=== PATIENT | female | born 1940 | race Caucasian/White ===

== ENCOUNTER → 2019-04-03 08:44 | Outpatient (CLI) | payer MEDICARE, BC | END | disposition home or self-care (01) | LOC: D.US 08:44 | PROVIDERS: ATTEND Nurse Practitioner Family | DX: N18.3 Chronic kidney disease, stage 3 (moderate) (principal); I10 Essential (primary) hypertension ==

== ENCOUNTER → 2019-06-11 14:43 | Outpatient (CLI) | payer MEDICARE, BC ==
[~2019-06-11 14:43] MED LIST: ALDACTONE25 MG PO; BYSTOLIC5 MG PO; CALCIUM 250+D T1 TAB PO; CARDURA1 MG PO; CELEBREX200 MG PO; CO Q-10400 MG PO; COZAAR50 MG PO; DIFLUCAN150 MG PO; FEXOFENADINE H180 MG PO; FUROSEMIDE20 MG PO; GORDON'S VITE480 G1 TP; HYDROCODON-ACE1 EA10 PO; IPRATROPIUM BRO30 M1 NASAL; METROGEL 0.75 %45 GM TOPICAL; NEXIUM40 MG PO; PREDNISONE2.5 MG PO; PREMARIN0.3 MG PO; PROBIOTIC1 EAC1 PO; RANITIDINE HCL150 M1 PO; RENA-VITE TABL0.8 MG PO; ROBAXIN500 MG PO; SYNTHROID50 MCG PO; ULTRAM50 MG PO; XALATAN 0.0052.5 ML EACH EYE; ZOCOR20 MG PO
[2019-07-13 07:44] VITALS: BMI 30.3
== END | disposition home or self-care (01) ==
LOC: D.MRI 14:43
PROVIDERS: ATTEND Clinical Nurse Specialist Family Health
DX: M25.511 Pain in right shoulder (principal)

== ENCOUNTER 2019-06-13 14:40 | Emergency (ER) | payer MEDICARE, BC ==
[2019-06-13 14:49] VITALS: Wt 70.5 kg
[2019-06-13 16:13] VITALS: BP 139/61
[2019-07-10] MEDS ORDERED: BYSTOLIC5 MG PO (11:01)
[2019-07-10] MEDS ORDERED: CALCIUM 250+D T1 TAB PO (11:02)
[2019-07-10] MEDS ORDERED: CO Q-10400 MG PO (11:02)
[2019-07-10] MEDS ORDERED: CELEBREX200 MG PO (11:02)
[2019-07-10] MEDS ORDERED: RENA-VITE TABL0.8 MG PO (11:03)
[2019-07-10] MEDS ORDERED: FEXOFENADINE H180 MG PO (11:03)
[2019-07-10] MEDS ORDERED: XALATAN 0.0052.5 ML EACH EYE (11:04)
[2019-07-10] MEDS ORDERED: FUROSEMIDE20 MG PO (11:05)
[2019-07-10] MEDS ORDERED: SYNTHROID50 MCG PO (11:06)
[2019-07-10] MEDS ORDERED: COZAAR50 MG PO (11:06)
[2019-07-10] MEDS ORDERED: ROBAXIN500 MG PO (11:07)
[2019-07-10] MEDS ORDERED: ULTRAM50 MG PO (11:08)
[2019-07-10] MEDS ORDERED: METROGEL 0.75 %45 GM TOPICAL (11:09)
[2019-07-10] MEDS ORDERED: NEXIUM40 MG PO (11:09)
[2019-07-10] MEDS ORDERED: PREDNISONE2.5 MG PO (11:10)
[2019-07-10] MEDS ORDERED: PREMARIN0.3 MG PO (11:10)
[2019-07-10] MEDS ORDERED: PROBIOTIC1 EAC1 PO (11:11)
[2019-07-10] MEDS ORDERED: RANITIDINE HCL150 M1 PO (11:11)
[2019-07-10] MEDS ORDERED: ZOCOR20 MG PO (11:12)
[2019-07-10] MEDS ORDERED: GORDON'S VITE480 G1 TP (11:13)
[2019-07-10] MEDS ORDERED: IPRATROPIUM BRO30 M1 NASAL (11:14)
[2019-07-10] MEDS ORDERED: CARDURA1 MG PO (11:14)
[2019-07-10] MEDS ORDERED: DIFLUCAN150 MG PO (11:15)
== END 2019-06-13 16:13 | disposition home or self-care (01) ==
LOC: D.ER 14:40
DX: S40.021A Contusion of right upper arm, initial encounter (principal); W19.XXXA Unspecified fall, initial encounter

== ENCOUNTER 2019-07-13 06:35 | Day surgery (SDC) | payer MEDICARE, BC ==
[2019-07-10 10:38] LABS: BASOPHILS 0.2 % (0-2); EOSINOPHILS 0.9 % (0-7); HEMATOCRIT 40.5 % (36.0-48.0); HEMOGLOBIN 12.6 g/dL (12-16); IMMATURE GRANULOCYTES 0.6 % (0-5); LYMPHOCYTES 26.3 % (15-50); MCH 32.2 pg (26.0-34.0); MCHC 31.1 g/dL (31.0-37.0); MCV 103.6 fL (80.0-100.0); MEAN PLATELET VOLUME 9.6 fL (7.4-10.4); MONOCYTES 8.3 % (2-11); NEUTROPHILS 63.7 % (40-80); PLATELET COUNT 242 10x3/uL (130-400); RBC 3.91 10x6/uL (4.00-5.40); RDW 13.4 % (11.5-14.5); WBC 8.7 10x3/uL (4.8-10.8)
[2019-07-10 10:52] LABS: ANION GAP 8.1 mmol/L (8-16); CALCIUM 8.9 mg/dL (8.5-10.1); CARBON DIOXIDE 29.8 mmol/L (21.0-32.0); CREATININE - SERUM 1.2 mg/dL (0.6-1.3); POTASSIUM - SERUM 3.9 mmol/L (3.5-5.1)
[~2019-07-13] VITALS: Ht 152.4 cm; Wt 70.3 kg
[~2019-07-13 06:35] MED LIST changes: -ALDACTONE25 MG PO; -HYDROCODON-ACE1 EA10 PO
[2019-07-13] MEDS ORDERED: ALDACTONE25 MG PO (07:31)
[2019-07-13 07:44] VITALS: BP 150/76; Ht 152.4 cm; Wt 70.3 kg
[2019-07-13] MEDS ORDERED: HYDROCODON-ACE1 EA10 PO (09:49)
--- NOTE | 2019-07-13 10:37 | NUR ---
1028 FAMILY AT SIDE.
--- NOTE | 2019-07-28 15:11 | OP ---
PATIENT NAME: ARTURO PADRON MEDICAL RECORD: [id number] :38 LOCATION:[facility] ADMISSION DATE: SURGEON: MIESHA MILLIGAN, CHRISSY CROCKER DATE OF OPERATION: 07/13/2019 PREOPERATIVE DIAGNOSES: Rotator cuff tear of the left shoulder with impingement and acromioclavicular arthritis. POSTOPERATIVE DIAGNOSES: Rotator cuff tear of the left shoulder with impingement and acromioclavicular arthritis plus biceps tendinitis. PROCEDURES: Left shoulder arthroscopy, left shoulder arthroscopic rotator cuff repair, left shoulder biceps tenotomy, left shoulder distal clavicle excision done through separate incision -- 1 cm left shoulder arthroscopic subacromial decompression. SURGEON: Chrissy Whiteside MD ANESTHESIA: General. INTRAOPERATIVE COMPLICATIONS: None. SUMMARY OF PATHOLOGIC FINDINGS: Consistent with the preoperative diagnosis, the patient did have a rotator cuff tear and impingement along with acromioclavicular arthritis. The patient had substantial biceps tendinitis, which resulted in a biceps tenotomy along with the other for procedures as mentioned above. OPERATIVE SUMMARY IN DETAIL: After obtaining the appropriate preoperative orthopedic surgery consent as well as anesthetic consultation, evaluation and clearance, the patient was brought to the operating room and placed on the operating table in supine position. After adequate general laryngeal mask airway sedation was administered, the patient was placed in a right lateral decubitus position. All pressure points were well padded to include down leg peroneal pad as well as axillary roll. The patient was held firmly to the operating table using the vacuum pack suction system. Left upper extremity was held and prepped and draped in routine sterile fashion. The arm was held in the Arthrex traction boom at 30 degrees of forward flexion, 30 degrees of abduction with 10 pounds of traction laterally. Arthroscopy was established in the glenohumeral joint from the posterior portal. Anterior portal was established in the anterior safe interval. Diagnostic arthroscopy did reveal the patient to have a full thickness rotator cuff tear as well as severe biceps tendinitis. At this point, surface tissue ablation system was utilized to completely release the biceps tendon from the bicipital labral junction. Sensory lateral portal was created to debride the undersurface of the rotator cuff of all nonviable rotator cuff appearing tissue and decorticate the greater tuberosity at the cartilage bone junction. Attention was then turned to the subacromial space. While in the subacromial space, [place] tissue ablation system was utilized to denude the undersurface of the acromion of all soft tissue elements. A 5-0 barrel bur was used for acromioplasty at the level of acromioclavicular joint. Arthroscopy portals were switched and under direct arthroscopic visualization to an anterior portal, distal clavicle excision was done for 1 cm. Lastly, attention was turned to the rotator cuff from the nonacromial side of the rotator cuff. All nonviable-appearing rotator cuff tissue was taken down with a 5.0 resector as was the subacromial bursa. Mattress #2 FiberTape was placed and OPERATIVE REPORT [id number] ARTURO PADRON then anchored laterally in the greater tuberosity with a 5.5 SwiveLock from Arthrex to complete the rotator cuff repair. Having completed this, arthroscopy portals were closed in routine interrupted fashion using 4-0 Prolene. Sterile dressings were applied. The patient was awakened, taken to recovery room in stable condition. All final needle and sponge counts were correct. TRANSINT:[id number] Voice Confirmation ID: [id number] DOCUMENT ID: [id number] CHRISSY WHITESIDE MD at 1511 CC: [id number] DICTATION DATE: 07/28/19 0804 KINESEOLOGIST: 07/28/19 1015 [facility] 07/13/19 [facility] [address] [place] [address]
== END 2019-07-13 12:30 | disposition home or self-care (01) ==
LOC: D.OPS 06:35 → D.PAN 07:30 → D.OPS 07:30
PROVIDERS: Anesthesiology; ATTEND Orthopaedic Surgery
DX: M75.42 Impingement syndrome of left shoulder (principal); M75.102 Unspecified rotator cuff tear or rupture of left shoulder, not specified as traumatic

== ENCOUNTER → 2019-07-27 09:26 | Outpatient (CLI) | payer MEDICARE, BC ==
[2019-07-13 07:44] VITALS: BMI 30.3
[~2019-07-27 09:26] MED LIST changes: +ALDACTONE25 MG PO; +HYDROCODON-ACE1 EA10 PO
== END | disposition home or self-care (01) ==
LOC: D.MRI 09:26
PROVIDERS: ATTEND Clinical Nurse Specialist Family Health
DX: M25.511 Pain in right shoulder (principal)

== ENCOUNTER 2021-01-09 11:23 | Day surgery (SDC) | payer MEDICARE, BC ==
[~2021-01-09] VITALS: Ht 152.4 cm; Wt 73.6 kg
[~2021-01-09 11:23] MED LIST changes: +BENICAR20 MG PO; +CRANBERRY TAB PO; +CYMBALTA60 MG PO; +DOXYCYCLINE HY100 M2 PO; +FOLIC ACID0.8 MG PO; +HYTRIN1 MG PO; +K-TAB10 MEQ PO; +ULTRACET TABLE1 EAC1 PO; +VALTREX500 MG PO; +VITAMIN D325 MC1 PO
[2021-01-09 12:03] LABS: BASOPHILS 0.3 % (0-2); EOSINOPHILS 0.9 % (0-7); HEMATOCRIT 38.7 % (36.0-48.0); HEMOGLOBIN 12.4 g/dL (12-16); IMMATURE GRANULOCYTES 0.8 % (0-5); LYMPHOCYTE ABS# 2.31 10x3/uL (1.18-3.74); LYMPHOCYTES 26.7 % (15-50); MCH 31.6 pg (26.0-34.0); MCV 98.7 fL (80.0-100.0); MEAN PLATELET VOLUME 10.4 fL (7.4-10.4); MONOCYTES 8.2 % (2-11); NEUTROPHIL ABS# 5.44 10x3/uL (1.56-6.13); NEUTROPHILS 63.1 % (40-80); PLATELET COUNT 297 10x3/uL (130-400); RBC 3.92 10x6/uL (4.00-5.40); WBC 8.6 10x3/uL (4.8-10.8)
[2021-01-09 12:10] LABS: ANION GAP 10.1 mmol/L (8-16); CALCIUM 9.3 mg/dL (8.5-10.1); CARBON DIOXIDE 30.3 mmol/L (21.0-32.0); CREATININE - SERUM 1.5 mg/dL (0.6-1.3); POTASSIUM - SERUM 4.4 mmol/L (3.5-5.1)
[2021-01-09 13:50] VITALS: BP 135/60; BMI 31.9
--- NOTE | 2021-01-09 17:20 | NUR ---
DISCHARGE INSTRUCTIONS REVIEWED WITH PT, ORIGINAL RX FOR TRAMADOL, COLACE AND VALIUM, ALONG WITH COPY OF DC INSTRUCTIONS PROVIDED TO PT. SHE VOICED UNDERSTANDING OF ALL.
--- NOTE | 2021-01-09 19:00 | NUR ---
BLADDER SCAN PERFORMED. 227 ML SHOWN ON BLADDER SCAN
--- NOTE | 2021-01-09 20:05 | NUR ---
BLADDER SCAN PERFORMED FOR SECOND TIME. BLADDER SCAN SHOWS APPROX 300 ML IN BLADDER. PATIENT HAS LITTLE TO NO URGE TO URINATE. HAS ATTEMPTED MULTIPLE TIMES WITH NO SUCCESS
--- NOTE | 2021-01-09 20:48 | NUR ---
PATIENT TRANSFERRED BY WHEELCHAIR TO 220, PATIENT AWAKE, ALERT, DENIES COMPLAINTS, PATIENT IS PLEASANT AND COOPERATIVE WITH PLAN. PATIENT CONTINUES TO RECEIVE IV FLUIDS AND DRINK LIQUIDS, LITTLE TO NO URGE TO URINATE
[2021-01-10 03:23] VITALS: BP 135/60; Ht 152.4 cm; Wt 73.6 kg
[2021-01-10 04:00] VITALS: BP 144/65
[2021-01-10 08:17] VITALS: BP 151/72
--- NOTE | 2021-01-10 10:03 | NUR ---
MOSES REMOVED, TIP INTACT, 500mL CLEAR URINE, PT TOLERATED WELL
[2021-01-10] MEDS ORDERED: TRAMADOL HCL E100 M1 PO (10:13)
[2021-01-10] MEDS ORDERED: COLACE100 MG PO (10:14)
[2021-01-10] MEDS ORDERED: VALIUM5 MG PO (10:15)
[2021-01-10] MEDS ORDERED: FLOMAX0.4 MG PO (10:28)
[2021-01-10 12:48] VITALS: BP 141/66
--- NOTE | 2021-01-10 13:09 | NUR ---
PT STILL TRYING TO URINATE, PT STATES SHE TAKES 40MG OF LASIX DAILY AT HOME AND HAS NOT RECEIVED ANY OF HER HOME MEDS IN TWO DAYS, PT REQUESTS A DOSE OF LASIX TO HELP HER URINATE
--- NOTE | 2021-01-10 13:59 | NUR ---
MO CONTACTED, DISCUSSED PT REQUEST FOR LASIX, ORDERS RECIEVED FOR LASIX AND FLOMAX ONE TIME DOSE AND FOR PT TO BE BLADDER SCANNED
--- NOTE | 2021-01-10 15:23 | NUR ---
BLADDER SCAN 203mL
--- NOTE | 2021-01-10 15:53 | NUR ---
DISCHARGE INSTRUCTIONS REVIEWED AND SIGNED WITH PT, NO IV, STAT LOCK REMOVED FROM RIGHT LEG, PT IN STABLE CONDITION, PT TAKEN DOWN TO FRONT DOOR VIA WHEELCHAIR BY HOSPITAL STAFF, NO SIGNS OF DISTRESS
--- NOTE | 2021-01-10 16:55 | HP ---
PATIENT: ARTURO PADRON MEDICAL RECORD: [id number] ACCOUNT: [id number] LOCATION:D.MS [id number] : 38 ADMISSION DATE: 01/09/21 PCP: JT HAYWARD MD HISTORY AND PHYSICAL EXAMINATION HISTORY OF PRESENT ILLNESS: She is here for a procedure for prolapse and hemorrhoids as well as excision of an anal skin tag. She has numerous allergies. We discussed the pathophysiology of hemorrhoids as well as how they can be fixed. She has elected for procedure for prolapse and hemorrhoids with excision of an anal skin tag. She has a combination of internal and external hemorrhoidal symptoms, which are intractable. She sometimes has to reduce a prolapsed hemorrhoid. HOME MEDICINES: Reviewed. PAST MEDICAL AND SURGICAL HISTORY: Numerous orthopedic problems. Gastroesophageal reflux, arthritis, hypercholesterolemia, hypertension, shoulder pain, thyroid problems, urinary tract infections. FAMILY HISTORY: Mother had a stroke and arthritis. Father had Parkinson's disease and hypertension. PHYSICAL EXAMINATION: GENERAL: The patient does not appear acutely ill. She does not appear chronically ill. The entire physical examination was performed in the presence of a female nurse. EARS: External ears appeared normal. EYES: Extraocular movements are intact. NECK: Trachea is midline. CHEST: No intercostal retractions. PULMONARY: Nonlabored. No stridor. ANAL: Anal skin tag and large external hemorrhoids. IMPRESSION: Intractably symptomatic hemorrhoidal problems with an anal skin tag. PLAN: Procedure for prolapse and hemorrhoids as well as excision of an anal skin tag. TRANSINT:[id number] Voice Confirmation ID: [id number] DOCUMENT ID: [id number] SHREE NEVES MD at 1655 CC: MATIAS ARANDA APRN and JT HAYWARD [id number] DICTATION DATE: 01/09/21 1430 PHP DEVELOPER: 01/09/21 1632 [facility] [address] [place] [address]
[2021-01-10 17:22] VITALS: BP 148/74
--- NOTE | 2021-01-11 10:33 | OP ---
PATIENT NAME: ARTURO PADRON MEDICAL RECORD: [id number] :38 LOCATION:D.OPS ADMISSION DATE: SURGEON: MIKEY NEVES MD DATE OF OPERATION: 01/09/2021 PREOPERATIVE DIAGNOSES: 1. Intractably symptomatic hemorrhoids. 2. Internal hemorrhoidal bleeding. 3. Anal prolapse with a single third-degree hemorrhoidal prolapse. 4. Symptomatic skin tag. 5. Intractably symptomatic external hemorrhoids. POSTOPERATIVE DIAGNOSES: 1. Intractably symptomatic hemorrhoids. 2. Internal hemorrhoidal bleeding. 3. Anal prolapse with a single third-degree hemorrhoidal prolapse. 4. Symptomatic skin tag. 5. Intractably symptomatic external hemorrhoids. PROCEDURE: Procedure for prolapse and hemorrhoids also excision of anal skin tag. SURGEON: Mikey Neves MD ACCOUNT DEVELOPMENT REPRESENTATIVE: None. BLOOD LOSS: Minimal. ANESTHESIA: General. COMPLICATIONS: None. The risks, possible complications, and alternatives of the procedure were explained to the patient. She elects to proceed. We discussed the pathophysiology of hemorrhoids as well as how they can be repaired. The discussion specifically included, but was not limited to, bleeding requiring emergency reoperation, infection, recurrent hemorrhoidal symptoms, anal stenosis, and fecal incontinence. OPERATIVE COURSE: The patient was conveyed to the operating room electively on 01/09/2021. General anesthesia was induced by the anesthesia staff. The patient was placed in the lithotomy position. The anus and perineum were sterilely prepped and draped. A U-shaped anal retractors were placed within the anus. I noted no evidence of anal fissure. No evidence of an anal fistula. I examined the posterior wall of the vagina and noted no injury and specifically no rectovaginal fistula. The PPH dilator retractor was placed and the retractor was sewn to the surrounding anoderm with 2-0 silks. A mucosal pursestring suture of 2-0 Prolene was applied 1 cm cephalad to the clear retractor. The PPH stapling device was inserted with the anvil cephalad to the pursestring suture, which was then tightened and tied. The stapling device was engaged. It was held in place for 3 minutes and then fired. It was then removed. There was entire donut of rectal and internal hemorrhoidal tissue within the stapling device. Bleeding along the mucosal anastomotic staple line was controlled with [id number] OPERATIVE REPORT [id number] ARTURO PADRON 3-0 Vicryl. Gelfoam was placed within the anus and lower rectum. I then grasped the skin tag which was located at 11 o'clock and excised with electrocautery. Bleeding was controlled with electrocautery. A combination of Marcaine and a steroid preparation were used to infiltrate the perianal tissues. A topical anesthetic cream was applied to the external hemorrhoids. The patient was then extubated and conveyed to post-anesthesia care unit where she was in stable condition. She will be discharged home on Valium as well as an analgesic and a stool softener. TRANSINT:[id number] Voice Confirmation ID: [id number] DOCUMENT ID: [id number] MIKEY NEVES MD at 1033 CC: [id number] DICTATION DATE: 01/10/211847 BULWARK CARPENTER: 01/11/21317 [facility] [place] 01/10/21 [id number] [place] [address]
== END 2021-01-10 15:30 | disposition home or self-care (01) ==
LOC: D.OPS 11:23 → D.MS 20:40 → D.OPS 01-10 15:30
PROVIDERS: ATTEND Surgery
DX: K64.8 Other hemorrhoids (principal); K62.2 Anal prolapse; K64.2 Third degree hemorrhoids; K64.4 Residual hemorrhoidal skin tags; K21.9 Gastro-esophageal reflux disease without esophagitis; E78.00 Pure hypercholesterolemia, unspecified; I10 Essential (primary) hypertension; E07.9 Disorder of thyroid, unspecified